=== PATIENT | female | born 1930 | race Caucasian/White ===

== ENCOUNTER 2016-10-17 14:28 | Emergency (ER) | payer MEDICARE, OTHER ==
[~2016-10-17] VITALS: Ht 154.9 cm; Wt 59.0 kg
[~2016-10-17 14:28] MED LIST: AMLODIPINE5 MG PO; ASA; ASPIRIN81 M1 PO; CRANBERRY PLUS VIT C PO; DAYPRO600 M1 PO; FISH OIL; FISH OIL 10001000 MG PO; HYDROCHLOROTHIAZIDE; LIPITOR10 MG PO; LISINOPRIL/HCTZ1 TA4 PO; LISINOPRIL10 M1 PO; LOPRESSOR25 MG PO; MULTIVITAMIN; MULTIVITAMIN1 CTB PO; VALSARTAN; VITAMIN A8000 IU PO; VITAMIN B122500 MCG PO; VITAMIN D3; VITAMIN D32000 IU PO; [UNRECOGNIZED DRUG - OTHER]; [UNRECOGNIZED DRUG - OTHER]
[2016-10-17 14:44] VITALS: BP 163/75
[2016-10-17] MEDS ORDERED: PREDNISONE10 MG PO (14:53)
== END 2016-10-17 17:36 | disposition home or self-care (01) ==
LOC: ED 14:28
DX: M25.561 Pain in right knee (principal); M25.551 Pain in right hip; F17.200 Nicotine dependence, unspecified, uncomplicated; Z88.8 Allergy status to other drugs, medicaments and biological substances; Z79.82 Long term (current) use of aspirin; Z79.899 Other long term (current) drug therapy

== ENCOUNTER → 2016-11-03 | Emergency (ER) | payer MEDICARE, OTHER ==
[~2016-11-03] VITALS: Ht 154.9 cm; Wt 59.0 kg
[~2016-11-03] MED LIST changes: +PREDNISONE10 MG PO
--- NOTE | ~2016-11-03 | EKG ---
[place], [place] ELECTROCARDIOGRAM REPORT NAME: PEDRO POLLOCK UNIT #: [id number] ROOM: DOCTOR: SARBJIT BHATTI,ALEJANDRO BIRTHDATE: [birth year] DOS: 11/03/2016 TIME: 1834 hours. IMPRESSION: 1. Normal sinus rhythm. 2. left ventricular hypertrophy. ALEJNADRO SCHAFFER MD CM:EKGRPT:ELECTROCARDIOGRAM REPORT [id number] ALEJANDRO SCHAFFER MD
[2016-11-03 18:13] LABS: BASO # 0.1 10*3/uL (0.0-0.1); BASO % 0.5 % (0.0-1.0); EOS # 0.1 10*3/uL (0.0-0.4); EOS % 1.2 % (1.0-4.0); HEMATOCRIT 43.7 % (37.0-47.0); HEMOGLOBIN 14.4 g/dl (12.0-16.0); LYMPH # 1.2 10*3/uL (1.3-4.4); LYMPH % 12.5 % (27.0-41.0); MEAN CELL VOLUME 91.2 fl (81.0-99.0); MEAN CORPUSCULAR HGB 30.1 pg (27.0-31.0); MEAN PLATELET VOLUME 9.8 fl (9.6-12.3); MONO # 0.7 10*3/uL (0.1-1.0); MONO % 7.1 % (3.0-9.0); NEUT # 7.6 10*3/uL (2.3-7.9); NEUT % 78.3 % (47.0-73.0); PLATELET COUNT AUTOMATED 176 10*3/uL (130-400); RED BLOOD COUNT 4.79 10*6/uL (4.10-5.10); RED CELL DISTRI WIDTH 12.8 % (0-14.5); WHITE BLOOD COUNT 9.7 10*3/uL (4.8-10.8)
[2016-11-03 18:24] LABS: ACT PARTIAL THROMBO TIME 25.7 SECONDS (20.8-31.5)
[2016-11-03 18:27] LABS: ALBUMIN 3.3 gm/dl (3.1-4.5); ALKALINE PHOSPHATASE 73 U/L (45-117); BUN 19 mg/dl (7-24); CHLORIDE 103 mmol/L (98-107); CREATININE 0.89 mg/dL (0.55-1.02); POTASSIUM 4.7 mmol/L (3.5-5.1); SGOT/AST 22 IU/L (3-35); SGPT/ALT 25 U/L (12-78); SODIUM 139 mmol/L (136-145); TOTAL PROTEIN 6.6 gm/dL (6.4-8.2)
[2016-11-03 20:35] VITALS: BP 162/86
[2016-11-03 20:43] LABS: BILIRUBIN NEGATIVE (NEGATIVE); BLOOD NEGATIVE (NEGATIVE); CLARITY SL CLOUDY (CLEAR); COLOR YELLOW (YELLOW); GLUCOSE NEGATIVE (NEGATIVE); KETONE NEGATIVE (NEGATIVE); LEUKO ESTERASE NEGATIVE (NEGATIVE); NITRITE NEGATIVE (NEGATIVE); UROBILINOGEN 0.2 E.U./dl (0.2-1.0)
[2016-11-03 20:52] LABS: BACTERIA TRACE; MUCOUS 1+; WBC 0-2 wbc/hpf (0-5)
== END ==
LOC: ED 16:15
PROVIDERS: Physician Assistant
DX: S72.011A Unspecified intracapsular fracture of right femur, initial encounter for closed fracture (principal); Z88.8 Allergy status to other drugs, medicaments and biological substances; Z79.82 Long term (current) use of aspirin; Z79.899 Other long term (current) drug therapy; W10.9XXA Fall (on) (from) unspecified stairs and steps, initial encounter; Y93.89 Activity, other specified; Y92.89 Other specified places as the place of occurrence of the external cause; Y99.8 Other external cause status

== ENCOUNTER → 2016-12-19 | Outpatient (CLI) | payer MEDICARE, OTHER ==
[2016-12-20 15:07] LABS: T PALLIDUM AB (FTA-AB) 006379 Non Reactive (Non Reactive)
[2016-12-20 17:06] LABS: ANGIOTENSIN-CONVERTING ENZYME 8 U/L (14-82)
[2016-12-22 21:03] LABS: MITOGEN VALUE >10.00 IU/mL (.); TB Ag MINUS NIL VALUE 0.01 IU/mL (.); TB Ag VALUE 0.03 IU/mL (.); TB GOLD Negative (Negative)
== END | disposition home or self-care (01) ==
LOC: LAB 16:29
DX: H30.90 Unspecified chorioretinal inflammation, unspecified eye (principal)

== ENCOUNTER → 2017-11-01 | Outpatient (CLI) | payer MEDICARE, OTHER ==
[2017-11-01 12:04] LABS: BUN 10 mg/dl (7-24); CHLORIDE 102 mmol/L (98-107); CREATININE 0.84 mg/dL (0.55-1.02); POTASSIUM 4.1 mmol/L (3.5-5.1); SODIUM 138 mmol/L (136-145)
== END ==
LOC: LAB 11:13
PROVIDERS: Internal Medicine Interventional Cardiology
DX: I10 Essential (primary) hypertension (principal)

== ENCOUNTER → 2017-12-06 | Outpatient (CLI) | payer MEDICARE, OTHER ==
[~2017-12-06] MED LIST changes: +CITRACAL + D E1 EACH PO; +HYDROCODONE-AC1 EAC1 PO; +LIPITOR40 MG PO; +MYRBETRIQ25 M1 PO; +OMEPRAZOLE40 MG PO; +ZESTRIL40 MG PO
[2017-12-06 10:20] LABS: BUN 14 mg/dl (7-24); CHLORIDE 101 mmol/L (98-107); CREATININE 0.81 mg/dL (0.55-1.02); POTASSIUM 3.7 mmol/L (3.5-5.1); SODIUM 137 mmol/L (136-145)
== END | disposition home or self-care (01) ==
LOC: LAB 09:20
PROVIDERS: Internal Medicine Interventional Cardiology
DX: I25.10 Atherosclerotic heart disease of native coronary artery without angina pectoris (principal); I10 Essential (primary) hypertension; E78.2 Mixed hyperlipidemia